=== PATIENT | female | born 1960 | race Caucasian/White ===

== ENCOUNTER → 2020-06-26 | Outpatient (CLI) | payer MEDICAID ==
--- NOTE | 2020-06-26 19:07 | RAD ---
INDICATION: Reason: CAROTID BRUIT / Spl. Instructions: / History: COMPARISON: None. TECHNIQUE: Color, grayscale and doppler ultrasound images obtained of the carotid system bilaterally. Percent stenosis is estimated using criteria that correlates with NASCET methodology. FINDINGS: Peak systolic velocities are as follows in cm/s: Right Carotid System: CCA: 65 ICA: 88 ICA/CCA Ratio 1.2 Left Carotid System: CCA: 119. ICA: 136 ICA/CCA Ratio 1.2 Right vertebral artery is antegrade. No vascular flow is seen within the left vertebral artery. IMPRESSION: * Multifocal plaque is seen throughout the carotid system with elevated velocity within the left int ernal carotid artery which correlates with a 50-69 percent stenosis. * No vascular flow is seen within the left vertebral artery which could be secondary to occlusion. N o comparison is available for review to assess acuity and correlation with the patient's symptoms is needed. Preliminary report was called to the ordering provider's answering line at 7:00 PM on date of exam. Electronically signed by: Ramon Damon MD (06/26/2020 7:05 PM) [id number]
== END ==
LOC: US 10:20
PROVIDERS: ATTEND Family Medicine
DX: I65.22 Occlusion and stenosis of left carotid artery (principal)
CPT/HCPCS: 93880

== ENCOUNTER → 2020-10-03 | Outpatient (CLI) | payer MEDICAID ==
--- NOTE | 2020-10-04 10:25 | CARD ---
MR#: [id number] Date of Study: 10/03/2020 Ordering Physician: ANJU CURRIE, Referring Physician: ANJU CURRIE, Tech: Mickie Medeirosyolieab [facility] APPROVED REPORT EXAM: Two-dimensional and M-mode echocardiogram with Doppler and color Doppler. Other Information Quality : AverageHR: 80bpm INDICATION Hypertension/HCVD RISK FACTORS Hyperlipidemia Diabetes 2D DIMENSIONS RVDd3.2 (2.9-3.5cm)Left Atrium(2D)3.2 (1.6-4.0cm) IVSd1.0 (0.7-1.1cm)Aortic Root(2D)2.7 (2.0-3.7cm) LVDd4.0 (3.9-5.9cm)LVOT Diameter2.0 (1.8-2.4cm) PWd1.0 (0.7-1.1cm)LVDs2.2 (2.5-4.0cm) FS (%) 45.3 %SV52.0 ml Aortic Valve AoV Peak Marv.127.1cm/sAoV VTI24.5cm AO Peak GR.6.5mmHgLVOT Peak Marv.107.4cm/s LVOT VTI 23.91cmAO Mean GR.3mmHg ERIC (VMAX)2.42dq2EEN (VTI)2.86cm2 Mitral Valve MV E Foqodcwz16.2cm/sMV DECEL GLLV013yq MV A Paapolsm84.6cm/sE/A Ratio1.1 Pulmonary Valve PV Peak Esuybiqo67.9cm/sPV Peak Grad.3mmHg Pulmonary Vein S1 Xswnztdv86.8cm/sD2 Ybermjmg51.4cm/s LEFT VENTRICLE The left ventricle is normal size. There is normal left ventricular wall thickness. The left ventricu lar systolic function is normal and the ejection fraction is within normal range. The Ejection Fracti on is 60-65%. There is normal LV segmental wall motion. Transmitral Doppler flow pattern is Grade II- pseudonormal filling dynamics. RIGHT VENTRICLE The right ventricle is normal size. There is normal right ventricular wall thickness. The right ventr icular systolic function is normal. ATRIA The left atrium size is normal. The right atrium size is normal. The interatrial septum is intact wit h no evidence for an atrial septal defect or patent foramen ovale as noted on 2-D or Doppler imaging. AORTIC VALVE The aortic valve is normal in structure and function. Doppler and Color Flow revealed no significant aortic regurgitation. There is no significant aortic valvular stenosis. Calculated aortic valve area is 2.9 cm2 with maximum pressure gradient of 7 mmHg and mean pressure gradient of 3 mmHg. MITRAL VALVE The mitral valve is normal in structure and function. There is no evidence of mitral valve prolapse. There is no mitral valve stenosis. Doppler and Color-flow revealed trace mitral regurgitation. TRICUSPID VALVE The tricuspid valve is normal in structure and function. Doppler and Color Flow revealed no tricuspid valve regurgitation noted. There is no tricuspid valve stenosis. PULMONIC VALVE The pulmonic valve is not well visualized. Doppler and Color Flow revealed no pulmonic valvular regur gitation. GREAT VESSELS The aortic root is normal in size. The IVC is normal in size and collapses >50% with inspiration. PERICARDIAL EFFUSION There is no evidence of significant pericardial effusion. Critical Notification Critical Value: No <Conclusion> The left ventricle is normal size. The left ventricular systolic function is normal and the ejection fraction is within normal range. The Ejection Fraction is 60-65%. Doppler and Color Flow revealed no significant aortic regurgitation. There is no significant aortic valvular stenosis. Doppler and Color-flow revealed trace mitral regurgitation. Doppler and Color Flow revealed no tricuspid valve regurgitation noted. Signed by : Rene Maldonado MD Electronically Approved : 10/04/2020 10:24:36
== END ==
LOC: ECHO 14:46
PROVIDERS: ATTEND Internal Medicine Cardiovascular Disease
DX: I10 Essential (primary) hypertension (principal)
CPT/HCPCS: 93306

== ENCOUNTER → 2021-04-11 | Outpatient (CLI) | payer MEDICAID ==
[~2021-04-11] MED LIST: REGADENOSON 0.4 MG/5 ML DISP.SYRIN. IV ONE
--- NOTE | 2021-04-11 11:47 | RAD ---
MR#: [id number] Date of Study: 04/11/2021 Ordering Physician: ANJU CURRIE, Referring Physician: ANJU CURRIE, Tech: Nina Dawn RVT, [facility] APPROVED REPORT Patient Location: OUT-PATIENT Laterality:Bilateral Indications Grayscale images of the carotid vasculature demonstrates moderate diffuse atherosclerotic plaque. On the right side there is moderate stenosis based on velocity criteria in the mid and distal internal carotid artery. Similarly on the left side there is again moderate 50 to 69% stenosis based on veloc ity criteria in the proximal and mid internal carotid artery. Right vertebral velocity is antegrade and within normal limits. Left vertebral velocity has to and f ro waveform suggestive of occlusion with collateralization. This was noted on prior Doppler imaging. Risk Factors Hypertension: Diabetes Smoking Doppler Spectral Velocity Analysis Right Left pCCA 116/16 cm/spCCA 129/12 cm/s mCCA 109/19 cm/smCCA 104/18 cm/s dCCA 90/13 cm/sdCCA 120/19 cm/s Bulb 139/22 cm/sBulb 93/15 cm/s ECA 178/11 cm/sECA 218/8 cm/s pICA 90/18 cm/spICA 149/30 cm/s Sid 134/31 cm/smICA 190/29 cm/s dICA 136/26 cm/sdICA 122/30 cm/s Vert. 62/11 cm/sVert. 52/8 cm/s ICA/CCA 1.17ICA/CCA 1.47 Critical Notification Critical Value: No <Conclusion> 1. Moderate bilateral internal carotid arterial disease. 2. 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 3. Consider CT angiography of the head and neck for further delineation if there is concern for spec ific symptoms Signed by : Jhony Turner, Electronically Approved : 04/11/2021 11:46:58
--- NOTE | 2021-04-11 12:39 | RAD ---
MR#: [id number] Date of Study: 04/11/2021 Ordering Physician: ANJU CURRIE, Referring Physician: JAMISON MORENO Tech: RT Fariba LaraR) (N) APPROVED REPORT Test Type: Pharmacological Stress Nurse/Tech: RT Jane (Wil) (N) Test Indications: carotid artery stenosis Cardiac History: none Medications: see EHR Medical History: hypertension, ex smoker, diabetic Resting ECG: sinus rhythm Resting Heart Rate: 78 bpm Resting Blood Pressure: 149/58mmHg Pretest Chest Pain: None Nurse/Tech Notes Consent: The procedure was explained to the patient in lay terms. Informed consent was witnessed. Zev eout was entered into [employer]. History and Stress Test performed by RT Emeka Lara) (N) Pharm. Details Pharmacologic stress testing was performed using 0.4mg per 5ml of regadenoson given intravenously ove r 7-10 seconds. POST EXERCISE Reason for Termination: Infusion complete Max HR: 113 bpm Max Blood Pressure: 100/63mmHg INTERPRETATION Stress EKG Conclusion: No acute changes were noted. Imaging Protocol IMAGE PROTOCOL: Rest Tc-99m/stress Tc-99m 1 day Rest: Stress: Viability: Radiopharm.Tc99m FwiulaajuWw06g Sestamibi Aqxx53wSa 31.5mCi Duration 15min. 10min. Img Date 04/11/2021 04/11/2021 Inj-Img Lrwa52kgx. 60min. Rest Admin Site:IV - Left ForearmAdministrator: RT Jane (R)(N) Stress Admin Site: IV - Left ForearmAdministrator: RT Jane (Wil)(N) STRESS DATA End Diast. Vol.41.0mlAv. Heart Rate89.0bpm End Syst. Vol.1.0mlCO Index BSA0.0L/min Myocardial Mass87.0gEject. Jdubbjzl40.0% Stress Rates Pk. Fill Rate4.92EDV/secLVtime Pk. Fill 156.03msec Pk. Empty Rate7.17ESV/secLVtime Pk. Rmuxo639.73msec /3 Pk. Fill1.66EDV/sec Stress Scores Regional WT0.00Summed WT0.00 Regional WM0.00Summed WM0.00 The rest and stress images show normal perfusion, normal contraction and thickening. LV Perf. Quant 17 Seg. SSS1.00 17 Seg. SRS2.00 17 Seg. SDS0.00 Stress Defect Extent (% LAD)0.00Rest Defect Extent (% LAD)0.00Rev. Defect Extent (% LAD)0.00 Stress Defect Extent (% LCX) 5.00Rest Defect Extent (% LCX)30.00Rev. Defect Extent (% LCX)0.00 Stress Defect Extent (% RCA)0.00Rest Defect Extent (% RCA)0.00Rev. Defect Extent (% RCA)0.00 Stress Defect Extent (% RODNEY)0.90Rest Defect Extent (% RODNEY)5.20Rev. Defect Extent (% RODNEY)0.00 Other Information Quality:Good Risk Assessment: Low Risk Conclusion 1. No evidence of EKG changes with stress testing. 2. Normal perfusion at stress/rest. 3. Subdiaphragmatic attenuation artifact on rest images. 4. Low risk study. 5. EF > 60%. Signed by : Jhony Turner, Electronically Approved : 04/11/2021 12:38:57
== END ==
LOC: NM 07:49
PROVIDERS: ATTEND Internal Medicine Cardiovascular Disease
DX: I65.23 Occlusion and stenosis of bilateral carotid arteries (principal); I10 Essential (primary) hypertension; E11.9 Type 2 diabetes mellitus without complications; Z87.891 Personal history of nicotine dependence
CPT/HCPCS: 78452; 93017; 93880; A9500; J2785

== ENCOUNTER 2021-09-19 07:17 | Emergency (ER) | payer MEDICAID ==
[~2021-09-19] VITALS: Ht 165.1 cm; Wt 63.0 kg
[2021-09-19 07:22] VITALS: BP 124/65
[2021-09-19] MEDS ORDERED: ONDANSETRON PF 4 MG/2 ML VIAL. IVP ONE (07:45)
[2021-09-19] MEDS ORDERED: FAMOTIDINE 20 MG/2 ML VIAL IVP ONE (07:45)
[2021-09-19] MEDS ORDERED: IV NORMAL SALINE 1,000ML 1,000 ML IV SCH (07:45)
[2021-09-19 07:48] LABS: BASO # 0.1 x10^3/uL (0.0-0.2); BASO % 1 % (0-3); EOS % 0 % (0-3); HEMATOCRIT 26.3 % (36.0-47.0); HEMOGLOBIN 8.2 g/dL (12.0-15.5); LYMPH # 2.4 x10^3/uL (1.0-4.8); LYMPH % 16 % (24-48); MEAN CORPUSCULAR HEMOGLOBIN 30 pg (25-35); MEAN CORPUSCULAR HGB CONC 31 g/dL (31-37); MEAN CORPUSCULAR VOLUME 95 fL (79-100); MONO # 2.2 x10^3/uL (0.0-1.1); MONO % 14 % (0-9); NEUT # 10.7 x10^3uL (1.8-7.7); NEUT % 70 % (31-73); PLATELET COUNT 327 x10^3/uL (140-400); RED BLOOD COUNT 2.76 x10^6/uL (3.50-5.40); RED CELL DISTRIBUTION WIDTH 13.9 % (11.5-14.5); WHITE BLOOD COUNT 15.4 x10^3/uL (4.0-11.0)
--- NOTE | 2021-09-19 07:49 | PHYS DOC ---
Past History Past Medical History: Cancer, Vascular Disease Additional Past Medical Histor: GI bleed Past Surgical History: Cholecystectomy, Spleenectomy, Tonsillectomy, Other Additional Past Surgical Histo: pancreas Adult General Chief Complaint Chief Complaint: NAUSEA/VOMITING/DIARRHEA HPI HPI Patient is a 61 year old female who presents with complaint of nausea and vomiting. Patient was just released from [facility] yesterday for treatment of recent GI bleed as well as newly diagnosed recurrence of neuroendocrine carcinoma. States that she is currently on chemotherapy and was also started on IV antibiotics for outpatient treatment. Has been having worsening nausea and vomiting over the past 24 hours since release. States that she has mild upper abdominal discomfort. States nausea is severe and is currently unable to hold anything down without vomiting. Currently denies fevers. Has a PICC line in place in the left upper extremity and is continuing to receive IV antibiotics as an outpatient. Review of Systems Review of Systems Constitutional: Denies fever or chills [] Eyes: Denies change in visual acuity, redness, or eye pain [] HENT: Denies nasal congestion or sore throat [] Respiratory: Denies cough or shortness of breath [] Cardiovascular: Denies chest pain or edema [] GI: Abdominal pain, nausea, vomiting, denies bloody stools or diarrhea [] : Denies dysuria or hematuria [] Musculoskeletal: Denies back pain or joint pain [] Integument: Denies rash or skin lesions [] Neurologic: Denies headache, focal weakness or sensory changes [] All other systems were reviewed and found to be within normal limits, except as documented in this note. Current Medications Current Medications Current Medications Medications (Trade) Dose Ordered Sig/Antonio Start Time Stop Time Status Last Admin Dose Admin Famotidine (Pepcid Vial) 20 mg 1X ONCE 09/19/21 07:45 09/19/21 07:46 Ondansetron HCl (Zofran) 4 mg 1X ONCE 09/19/21 07:45 09/19/21 07:46 Sodium Chloride 1,000 ml @ 1,000 mls/hr Q1H 09/19/21 07:45 09/19/21 08:44 Allergies Allergies Allergies Uncoded Allergies Type Severity Reaction Last Updated Verified PLASTIC TAPE Allergy Mild rash 04/11/21 Physical Exam Physical Exam Constitutional: Well developed, well nourished, no acute distress, non-toxic appearance. [] HENT: Normocephalic, atraumatic, bilateral external ears normal, oropharynx moist, no oral exudates, nose normal. [] Eyes: PERRLA, EOMI, conjunctiva normal, no discharge. [] Neck: Normal range of motion, no tenderness, supple, no stridor. [] Cardiovascular:Heart rate regular rhythm, no murmur [] Lungs & Thorax: Bilateral breath sounds clear to auscultation [] Abdomen: Bowel sounds normal, soft, no tenderness, no masses, no pulsatile masses. [] Skin: Warm, dry, no erythema, no rash. [] Back: No tenderness, no CVA tenderness. [] Extremities: No tenderness, no cyanosis, no clubbing, ROM intact, no edema. [] Neurologic: Alert and oriented X 3, normal motor function, normal sensory function, no focal deficits noted. [] Psychologic: Affect normal, judgement normal, mood normal. [] Current Patient Data Vital Signs Vital Signs Date Time Temp Pulse Resp B/P (MAP) Pulse Ox O2 Delivery O2 Flow Rate FiO2 09/19/21 07:22 97.9 97 18 124/65 (84) 98 Room Air Lab Results Laboratory Tests Test 09/19/21 07:20 09/19/21 09:07 09/19/21 10:49 09/19/21 11:49 White Blood Count 15.4 x10^3/uL Red Blood Count 2.76 x10^6/uL Hemoglobin 8.2 g/dL Hematocrit 26.3 % Mean Corpuscular Volume 95 fL Mean Corpuscular Hemoglobin 30 pg Mean Corpuscular Hemoglobin Concent 31 g/dL Red Cell Distribution Width 13.9 % Platelet Count 327 x10^3/uL Neutrophils (%) (Auto) 70 % Lymphocytes (%) (Auto) 16 % Monocytes (%) (Auto) 14 % Eosinophils (%) (Auto) 0 % Basophils (%) (Auto) 1 % Neutrophils # (Auto) 10.7 x10^3uL Lymphocytes # (Auto) 2.4 x10^3/uL Monocytes # (Auto) 2.2 x10^3/uL Eosinophils # (Auto) 0.0 x10^3/uL Basophils # (Auto) 0.1 x10^3/uL Segmented Neutrophils % 65 % Band Neutrophils % 7 % Lymphocytes % 13 % Atypical Lymphocytes % (Manual) 4 % Monocytes % 11 % Nucleated Red Blood Cells 2 Platelet Estimate Adequate Platelet Clumps, EDTA Present Anisocytosis Present Microcytosis Present Macrocytosis Present Pappenheimer Bodies Present Target Cells Present Ovalocytes Present [place] Bodies Present [place] Cells Present Sodium Level 137 mmol/L Potassium Level 4.3 mmol/L Chloride Level 95 mmol/L Carbon Dioxide Level 16 mmol/L Anion Gap 26 Blood Urea Nitrogen 18 mg/dL Creatinine 1.8 mg/dL Estimated GFR (Cockcroft-Gault) 28.4 BUN/Creatinine Ratio 10 Glucose Level 435 mg/dL Lactic Acid Level 2.3 mmol/L Calcium Level 8.8 mg/dL Total Bilirubin 0.4 mg/dL Aspartate Amino Transf (AST/SGOT) 6 U/L Alanine Aminotransferase (ALT/SGPT) 10 U/L Alkaline Phosphatase 98 U/L Total Protein 8.8 g/dL Albumin 2.2 g/dL Albumin/Globulin Ratio 0.3 Bedside Venous pH 7.35 Bedside Venous pCO2 28 mmHg Bedside Venous pO2 57 mmHg Venous Blood HCO3 16 mmol/L POC Venous O2 Saturation (Ara) 89 % Bedside FiO2 100 Urine Collection Type U cath Urine Color Yellow Urine Clarity Clear Urine pH 6.0 Urine Specific [place] 1.025 Urine Protein 30 mg/dl Urine Glucose (UA) 500 mg/dL Urine Ketones (Stick) >=160 mg/dL Urine Blood Trace Urine Nitrite Neg Urine Bilirubin Neg Urine Urobilinogen Dipstick 0.2 mg/dL Urine Leukocyte Esterase Neg Urine RBC 1-2 /HPF Urine WBC 1-4 /HPF Urine Squamous Epithelial Cells Many /LPF Urine Amorphous Sediment Present /HPF Urine Bacteria 0 /HPF Urine Hyaline Casts Occ /HPF Urine Mucus Slight /LPF Glucose (Fingerstick) 325 mg/dL Test 09/19/21 11:50 Lactic Acid Level 1.1 mmol/L Current Medications Medications (Trade) Dose Ordered Sig/Antonio Route PRN Reason Start Time Stop Time Status Last Admin Dose Admin Sodium Chloride 1,000 ml @ 1,000 mls/hr Q1H IV 09/19/21 07:45 09/19/21 08:44 DC 09/19/21 07:55 Ondansetron HCl (Zofran) 4 mg 1X ONCE IVP 09/19/21 07:45 09/19/21 07:45 DC Famotidine (Pepcid Vial) 20 mg 1X ONCE IVP 09/19/21 07:45 09/19/21 07:46 DC 09/19/21 08:01 Prochlorperazine Edisylate (Compazine) 10 mg 1X ONCE IV 09/19/21 08:00 09/19/21 08:01 DC 09/19/21 07:59 Diphenhydramine HCl (Benadryl) 12.5 mg 1X ONCE IVP 09/19/21 08:00 09/19/21 08:01 DC 09/19/21 08:00 Insulin Human Regular (HumuLIN R VIAL) 10 unit 1X ONCE IV 09/19/21 09:15 09/19/21 09:16 DC 09/19/21 09:18 Sodium Chloride 1,000 ml @ 1,000 mls/hr 1X ONCE IV 09/19/21 09:15 09/19/21 10:14 DC 09/19/21 11:38 Piperacillin Sod/ Tazobactam Sod (Zosyn Per Pharmacy) 1 each PRN DAILY PRN MC SEE COMMENTS 09/19/21 12:00 Vancomycin HCl (Vanco Per Pharmacy) 1 each PRN DAILY PRN MC SEE COMMENTS 09/19/21 12:00 Piperacillin Sod/ Tazobactam Sod 2.25 gm/Sodium Chloride 50 ml @ 100 mls/hr Q6HRS IV 09/19/21 12:00 Vancomycin HCl 1.5 gm/Sodium Chloride 500 ml @ 250 mls/hr 1X ONCE IV 09/19/21 13:00 09/19/21 14:59 EKG EKG Interpreted by me: Heart rate 97, sinus tachycardia, normal intervals, normal axis, no acute ST/T wave abnormalities present [] Radiology/Procedures Radiology/Procedures CT of the abdomen and pelvis interpreted by radiologist: Inflammatory changes in the abdomen and pelvis. History of neuroendocrine carcinoma with postsurgical changes of the left upper quadrant including splenectomy. Small approximately 1 cm nodules in the left upper quadrant may represent chronic postsurgical change, however residual or recurrent masses not excluded. Correlation should be made with pre and postoperative imaging. [address] [address] IMAGING REPORT Signed PATIENT: HELEN MENDEZ MACCOUNT: [id number] : 1960 LOCATION: ER AGE: 61 SEX: F EXAM STATUS: REG ER ORD. PHYSICIAN: WILEY GLASS MD REASON: vomiting,MID EPIGASTRIC PAIN PROCEDURE: ACUTE ABDOMEN SERIES . XR ABDOMEN COMP ACUTE History: Vomiting, mid epigastric pain Comparison: None. Technique: Frontal chest with upright and supine radiographs of the abdomen and pelvis. Findings: Devices: Right chest Mediport catheter tip projects at the cavoatrial junction. Left upper extremity PICC tip projects at the upper SVC. Chest: Clear lungs. Normal heart size. Calcified aortic arch. Bowel gas pattern: Nonobstructive bowel gas pattern. No dilated small bowel loops. Mild colonic stool. Dense material present at the rectum. Free air: None. Abnormal calcifications: 5 small round calcific densities in the left pelvis may represent dense material within colonic diverticula, phleboliths or ovarian dermoid. Bones: Right femoral neck dynamic compression screw. Other: Surgical clips across the upper abdomen. Impression: 1. Nonobstructive bowel gas pattern. No acute abdominopelvic findings. 2. No acute cardiopulmonary findings. 3. Left pelvis small round calcific densities may represent limits material within colonic diverticula, phleboliths or calcifications within in ovarian dermoid. Correlation with prior imaging would be beneficial. Electronically signed by: Raul Ahmadi MD (09/19/2021 8:08 AM) [id number] DICTATED AND SIGNED BY: RAUL AHMADI MD DATE: 09/19/21802 CC: WILEY GLASS MD; CLEO REYES MD ~ [] Heart Score C/O Chest Pain: No Risk Factors: Risk Factors: DM, Current or recent (<one month) smoker, HTN, HLP, family history of CAD, obesity. Risk Scores: Risk Factors: DM, Current or recent (<one month) smoker, HTN, HLP, family history of CAD, obesity. Course & Med Decision Making Course & Med Decision Making Pertinent Labs and Imaging studies reviewed. (See chart for details) The patient was started on IV fluids, Compazine, and Benadryl in the emergency department. Patient's lab work was reviewed which showed concerning findings of leukocytosis and elevated lactic acid level. This raises high concern for severe sepsis. Urinalysis performed shows no evidence signs of infection. Chest x-ray shows no residual pneumonia. CT of the abdomen and pelvis showed inflammatory changes including bilateral perinephric stranding. This may represent a focus of infection. Another consideration is the patient's PICC line. The patient is in need of broad-spectrum antibiotics and further care for possible severe sepsis. Blood cultures were drawn prior to initiation of Zosyn and vancomycin in the emergency department. We attempted to contact and transfer patient to [facility], however they were unable to accept patient due to lack of available beds. Patient thus will be transferred to [facility] for higher level of care including infectious disease consult. Care of patient accepted by Dr. Packer. Patient will be transferred by ground ambulance for further care. Spoke with patient regarding plan of care and she is in agreement at time of disposition. [] Dragon Disclaimer Dragon Disclaimer This electronic medical record was generated, in whole or in part, using a voice recognition dictation system. Departure Departure: Impression: Primary Impression: Severe sepsis Additional Impressions: Dehydration Nausea and vomiting Neuroendocrine carcinoma Disposition: 02 SHORT TERM HOSPITAL Condition: GUARDED Referrals: CLEO REYES MD (PCP) Problem Qualifiers Additional Impressions: Nausea and vomiting Vomiting type: unspecified Qualified Codes: R11.2 - Nausea with vomiting, unspecified WILEY GLASS MD September 19, 2021 07:49
[2021-09-19 07:56] LABS: CALCIUM 8.8 mg/dL (8.5-10.1); CREATININE 1.8 mg/dL (0.6-1.0); GFR 28.4; POTASSIUM 4.3 mmol/L (3.5-5.1)
[2021-09-19] MEDS ORDERED: PROCHLORPERAZINE 10 MG/2 ML VIAL. IV ONE (08:00)
[2021-09-19] MEDS ORDERED: diphenhydrAMINE 50 MG/ML VIAL IVP ONE (08:00)
[2021-09-19 08:02] LABS: ALBUMIN 2.2 g/dL (3.4-5.0); ALBUMIN/GLOBULIN RATIO 0.3 (1.0-1.7); TOTAL BILIRUBIN 0.4 mg/dL (0.2-1.0); TOTAL PROTEIN 8.8 g/dL (6.4-8.2)
--- NOTE | 2021-09-19 08:10 | RAD ---
. XR ABDOMEN COMP ACUTE History: Vomiting, mid epigastric pain Comparison: None. Technique: Frontal chest with upright and supine radiographs of the abdomen and pelvis. Findings: Devices: Right chest Mediport catheter tip projects at the cavoatrial junction. Left upper extremity PICC tip projects at the upper SVC. Chest: Clear lungs. Normal heart size. Calcified aortic arch. Bowel gas pattern: Nonobstructive bowel gas pattern. No dilated small bowel loops. Mild colonic stool . Dense material present at the rectum. Free air: None. Abnormal calcifications: 5 small round calcific densities in the left pelvis may represent dense mate rial within colonic diverticula, phleboliths or ovarian dermoid. Bones: Right femoral neck dynamic compression screw. Other: Surgical clips across the upper abdomen. Impression: 1. Nonobstructive bowel gas pattern. No acute abdominopelvic findings. 2. No acute cardiopulmonary findings. 3. Left pelvis small round calcific densities may represent limits material within colonic diverticu la, phleboliths or calcifications within in ovarian dermoid. Correlation with prior imaging would be beneficial. Electronically signed by: Raul Chan MD (09/19/2021 8:08 AM) [id number]
[2021-09-19] MEDS ORDERED: INSULIN REGULAR 100 UNIT/ML 3ML VIAL. IV ONE (09:15)
[2021-09-19 09:40] LABS: % ATYL 4 % (0-0); % BANDS 7 % (0-9); % LYMPHS 13 % (24-48); % MONOS 11 % (0-10); % SEGS 65 % (35-66); NUCLEATED RBC 2
[2021-09-19 09:42] LABS: TARGET CELLS PRESENT
[2021-09-19 09:43] LABS: BURR CELLS PRESENT; PLATELET CLUMP PRESENT
[2021-09-19 09:44] LABS: OVALOCYTES PRESENT
[2021-09-19 09:51] LABS: PAPPENHEIMER BODIES PRESENT
[2021-09-19 09:52] LABS: ANISOCYTOSIS PRESENT; MICROCYTOSIS PRESENT
[2021-09-19 09:53] LABS: HOWELL-JOLLY BODIES PRESENT
[2021-09-19 09:54] LABS: PLT ESTIMATE ADEQUATE (ADEQUATE)
[2021-09-19] MEDS: IV NORMAL SALINE 1,000ML 1,000 ML IV ONE ×2 (10:20→11:38)
[2021-09-19 11:43] LABS: AMORPHOUS SEDIMENT,UR PRESENT /HPF; BACTERIA,URINE 0 /HPF (0-FEW); CLARITY,URINE CLEAR; COLOR,URINE YELLOW; GLUCOSE,URINE 500 mg/dL (NEG); HYALINE CASTS, URINE OCC /HPF; NITRITE,URINE NEG (NEG); SQUAMOUS EPITHELIAL CELL,UR MANY /LPF; UROBILINOGEN,URINE 0.2 mg/dL (0.2 mg/dL)
[2021-09-19] MEDS ORDERED: PIPERACILLIN/TAZOBACTAM 2.25 GM in IV NORMAL SALINE 50ML 50 ML IV SCH (12:00)
[2021-09-19] MEDS ORDERED: VANCOMYCIN PER PHARMACY MC PRN (12:00)
[2021-09-19] MEDS ORDERED: PIP/TAZO PER PHARMACY MC PRN (12:00)
[2021-09-19] MEDS ORDERED: IV NORMAL SALINE 50ML 50 ML ONE (12:55)
[2021-09-19] MEDS ORDERED: PIPERACILLIN/TAZOBACTAM 2.25 GM VIAL IV ONE (12:55)
[2021-09-19] MEDS ORDERED: VANCOMYCIN 1.5 GM in IV NORMAL SALINE 500ML 500 ML IV ONE (13:00)
[2021-09-19 13:27] LABS: INFLUENZA A PATIENT NEGATIVE (NEGATIVE); INFLUENZA B PATIENT NEGATIVE (NEGATIVE)
--- NOTE | 2021-09-19 15:59 | RAD ---
CT ABDOMEN+PELVIS WO History: Nausea and vomiting. Leukocytosis, upper abdominal pain. History of neuroendocrine carcinoma . Comparison: Acute abdominal series 09/19/2021. Technique: Noncontrast CT of the abdomen and pelvis. Findings: Bibasilar atelectatic changes in the lungs. The liver is unremarkable. Status post cholecystectomy. U nremarkable right adrenal gland. Bilateral perinephric fat stranding. No nephrolithiasis or hydroneph rosis. Fatty atrophy of the pancreas and postsurgical changes from splenectomy. There are multiple nodular d ensities in the left upper quadrant. A rounded 0.9 x 0.9 mm nodule (axial 30) may represent lymph nod e, surgical change or residual mass. Adjacent 1.1 x 0.7 cm (axial 21) and 1.0 x 0.6 cm (axial 23) lef t upper quadrant nodules may represent nodular/postsurgical appearance of the adrenal gland versus re sidual surgical scarring or mass/adenopathy. Surgical clips are present along the gastric fundus. No focal wall thickening or abnormality. The sma ll bowel is unremarkable. There is mild colonic diverticulosis with a few diverticula filled with den se material, possibly recently ingested contrast. Dense material also present within the descending c olon and rectum with suspected to represent contrast material. The uterus and adnexa are unremarkable. Normal bladder. No intra-abdominal free air or free fluid. Ex tensive atherosclerotic calcifications of the aorta and iliac arteries. Degenerative changes of the s pine. Mild anterolisthesis of L4 on L5. Partially sacralized L5 with rudimentary L5-S1 disc. Right pr oximal femur ORIF. Impression: 1. Inflammatory changes in the abdomen and pelvis. 2. History of neuroendocrine carcinoma with postsurgical changes of the left upper quadrant includin g splenectomy. Small approximately 1 cm nodules in the left upper quadrant may represent chronic post surgical change, however residual or recurrent mass is not excluded. Correlation should be made with pre and postoperative imaging. ------ Exposure: One or more of the following individualized dose reduction techniques were utilized for thi s examination: 1. Automated exposure control 2. Adjustment of the mA and/or kV according to patient size 3. Use of iterative reconstruction technique. Electronically signed by: Raul Chan MD (09/19/2021 10:25 AM) [id number]
== END 2021-09-19 15:50 | disposition short-term general hospital (02) ==
LOC: ER 07:17
DX: A41.9 Sepsis, unspecified organism (principal); R65.20 Severe sepsis without septic shock; E86.0 Dehydration; C7B.8 Other secondary neuroendocrine tumors; Z20.822 Contact with and (suspected) exposure to COVID-19; Z90.49 Acquired absence of other specified parts of digestive tract; Z88.8 Allergy status to other drugs, medicaments and biological substances
CPT/HCPCS: 36415; 74022; 74176; 80053; 81001; 82803; 82947; 83605; 85007; 85025; 87428; 93005; 96361; 96365; 96366; 96367; 96375; 99285; C9803; J0780; J1200; J1815; J2543; J3370; J3490; J7030; J7040; U0003